=== PATIENT | male | born 1950 | race Caucasian/White ===

== ENCOUNTER 2016-07-17 19:34 | Emergency (ER) | payer OTHER, MEDICARE ==
[~2016-07-17] VITALS: Ht 188 cm; Wt 104.5 kg
[2016-07-17 19:46] VITALS: BP 140/99; PULSE 101; RESP 16; TEMP 97.9; O2SAT 97
[2016-07-17] MEDS ORDERED: VIAG50TA PO (20:17)
--- NOTE | 2016-07-17 20:28 | PD ---
HPI Chief Complaint: Complaint Time Seen by Provider: 20:16 Travel History International Travel<30 days: No Contact w/Intl Traveler<30days: No Traveled to known affect area: No History of Present Illness HPI The patient is a 66-year-old male that complains of chills, suprapubic pain and left flank pain since 5:30 this afternoon. The patient had prostate surgery on June 04 for prostate cancer, all of his prostate was removed. The patient has nausea and vomiting and chills but denies any fever. He had had an indwelling catheter prior to the surgery. He has had a nonproductive cough. PFSH Past Medical History Cancer: Yes (prostate) Tetanus Vaccination: > 5 Years Influenza Vaccination: No Past Surgical History Abdominal Surgery: Yes (bilateral inguinal hernia repair) Other Surgery: Yes (biceps rupture repair/ colon removed) Social History Alcohol Use: No Tobacco Use: No (quit 45 years ago) Substance Use: No Allergies-Medications (Allergen,Severity, Reaction): Coded Allergies: Sulfa (Verified Allergy, Unknown, 07/17/16) Uncoded Allergies: NKA (Allergy, Unknown, 11/02/02) Reported Meds & Prescriptions Reported Meds & Active Scripts Active Ciprofloxacin (Ciprofloxacin HCl) 500 Mg Tab 500 Mg PO BID 10 Days Reported Viagra (Sildenafil Citrate) 50 Mg Tab 50 Mg PO DAILY PRN Review of Systems Except as stated in HPI: all other systems reviewed are Neg Physical Exam Narrative GENERAL: The patient is alert, oriented 3 in moderate apparent distress with his abdominal and left flank pain. His vital signs show blood pressure 140/99 with a heart rate of 101 but are otherwise normal. SKIN: Focused skin assessment warm/dry. HEAD: Atraumatic. Normocephalic. EYES: Pupils equal and round. No scleral icterus. No injection or drainage. ENT: No nasal bleeding or discharge. Mucous membranes pink and moist. NECK: Trachea midline. No JVD. CARDIOVASCULAR: Regular rate and rhythm. No murmur appreciated. RESPIRATORY: No accessory muscle use. Clear to auscultation. Breath sounds equal bilaterally. GASTROINTESTINAL: Abdomen soft, with tenderness to direct palpation over the left flank and suprapubic regions bilaterally, nondistended. Hepatic and splenic margins not palpable. No guarding or rebound is present. MUSCULOSKELETAL: No obvious deformities. No clubbing. No cyanosis. No edema. NEUROLOGICAL: Awake and alert. No obvious cranial nerve deficits. Motor grossly within normal limits. Normal speech. PSYCHIATRIC: Appropriate mood and affect; insight and judgment normal. Data Data Last Documented VS Vital Signs Date Time Temp Pulse Resp B/P Pulse Ox O2 Delivery O2 Flow Rate FiO2 07/17/16 19:46 97.9 101 16 140/99 97 Orders Complete Blood Count With Diff (07/17/16 20:28) Comprehensive Metabolic Panel (07/17/16 20:28) Urinalysis - C+S If Indicated (07/17/16 20:28) Chest, Pa & Lat (07/17/16 20:28) Urine Culture (07/17/16 20:35) Ondansetron Inj (Zofran Inj) (07/17/16 21:00) Ceftriaxone Inj (Rocephin Inj) (07/17/16 21:45) Labs Laboratory Tests Test 07/17/16 07/17/16 20:35 20:40 Urine Color STRAW Urine Turbidity CLOUDY Urine pH 6.0 Urine Specific [place] 1.014 Urine Protein 100 mg/dL Urine Glucose (UA) NEG mg/dL Urine Ketones 40 mg/dL Urine Occult Blood MOD Urine Nitrite NEG Urine Bilirubin NEG Urine Leukocyte Esterase MOD Urine RBC 10-14 /hpf Urine WBC INNUM /hpf Urine Squamous Epithelial 0-5 /hpf Cells Urine Bacteria MANY /hpf Microscopic Urinalysis Comment CULTURE INDICATED White Blood Count 10.7 TH/MM3 Red Blood Count 5.16 MIL/MM3 Hemoglobin 14.2 GM/DL Hematocrit 42.5 % Mean Corpuscular Volume 82.4 FL Mean Corpuscular Hemoglobin 27.6 PG Mean Corpuscular Hemoglobin 33.5 % Concent Red Cell Distribution Width 13.1 % Platelet Count 266 TH/MM3 Mean Platelet Volume 8.8 FL Neutrophils (%) (Auto) 82.2 % Lymphocytes (%) (Auto) 8.0 % Monocytes (%) (Auto) 7.4 % Eosinophils (%) (Auto) 0.6 % Basophils (%) (Auto) 1.8 % Neutrophils # (Auto) 8.7 TH/MM3 Lymphocytes # (Auto) 0.9 TH/MM3 Monocytes # (Auto) 0.8 TH/MM3 Eosinophils # (Auto) 0.1 TH/MM3 Basophils # (Auto) 0.2 TH/MM3 CBC Comment DIFF FINAL Differential Comment Sodium Level 139 MEQ/L Potassium Level 3.6 MEQ/L Chloride Level 100 MEQ/L Carbon Dioxide Level 28.6 MEQ/L Anion Gap 10 MEQ/L Blood Urea Nitrogen 17 MG/DL Creatinine 1.40 MG/DL Estimat Glomerular Filtration 50 ML/MIN Rate Random Glucose 121 MG/DL Calcium Level 8.8 MG/DL Total Bilirubin 1.1 MG/DL Aspartate Amino Transf 17 U/L (AST/SGOT) Alanine Aminotransferase 22 U/L (ALT/SGPT) Alkaline Phosphatase 78 U/L Total Protein 7.9 GM/DL Albumin 3.4 GM/DL [facility] Medical Decision Making Medical Screen Exam Complete: Yes Emergency Medical Condition: Yes Medical Record Reviewed: Yes Interpretation(s) The complete metabolic profile shows creatinine 1.4, GFR 50 and total bilirubin 1.1 but is otherwise unremarkable. The urine shows cloudy turbidity, 100 protein, 40 ketones, moderate occult blood with moderate leukocyte esterase and innumerable white cells and 10-14 red cells and many bacteria and culture is indicated. The chest x-ray shows an elevated right hemidiaphragm but is otherwise unremarkable. The CBC is normal. Differential Diagnosis Pyelonephritis, cystitis, postsurgical pain, pneumonia Narrative Course The patient has pyelonephritis as well as a cystitis. Plan: The patient will be given Rocephin IV here and a prescription for Macrobid. He needs to increase his liquid intake. Diagnosis Primary Impression: Pyelonephritis Additional Impression: Cystitis Additional Instructions: Continue to increase liquid intake to establish a good urine flow through your kidneys. Follow-up with her primary care physician next week. The antibiotic is one tablet twice daily for 10 days. Med/Other Pt SpecificInfo: Prescription(s) given Scripts Ciprofloxacin 500 Mg [id number] Mg PO BID 10 Days Ref 0 Prov:Ravinder Hart MD 07/17/16 Disposition: 01 DISCHARGE HOME Condition: Stable Ravinder Hart MD July 17, 2016 20:28
[2016-07-17 20:38] LABS: GLUCOSE,URINE NEG (NEG); KETONE, URINE 40 mg/dL (NEG); NITRITE,URINE NEG (NEG)
[2016-07-17 20:43] LABS: BLOOD, URINE MOD (NEG)
[2016-07-17 20:44] LABS: URINE COLOR STRAW (YELLW/STRAW); WBC, URINE INNUM /hpf (0-5)
[2016-07-17 20:45] LABS: BACTERIA, URINE MANY /hpf; SQUAMOUS EPITHELIAL CELL URINE 0-5 /hpf (0-5)
[2016-07-17 20:46] LABS: COMMENT (UR) CULTURE INDICATED; CULTURE IF INDICATED CULTURE INDICATED
[2016-07-17 20:47] LABS: AUTOMATED NEUTROPHIL # 8.7 TH/MM3 (1.8-7.7); BASOPHIL # 0.2 TH/MM3 (0-0.2); BASOPHIL % 1.8 % (0.0-2.0); EOSINOPHIL # 0.1 TH/MM3 (0-0.4); EOSINOPHIL % 0.6 % (0.0-4.0); HEMATOCRIT 42.5 % (39.0-51.0); LYMPHOCYTE # 0.9 TH/MM3 (1.0-4.8); MEAN CELL VOLUME 82.4 FL (80.0-100.0); MEAN CORPUSCULAR HEMOGLOBIN 27.6 PG (27.0-34.0); MEAN CORPUSCULAR HGB CONC 33.5 % (32.0-36.0); MONO % 7.4 % (0.0-8.0); NEUT % 82.2 % (16.0-70.0); PLATELET COUNT 266 TH/MM3 (150-450); RED BLOOD COUNT 5.16 MIL/MM3 (4.50-5.90); RED CELL DISTRIBUTION WIDTH 13.1 % (11.6-17.2); WHITE BLOOD COUNT 10.7 TH/MM3 (4.0-11.0)
[2016-07-17 20:49] LABS: HEMO FLAGS DIFF FINAL
[2016-07-17 21:00] VITALS: BP 142/88; PULSE 74; RESP 18; O2SAT 99
[2016-07-17] MEDS ORDERED: ONDANSETRON HCL 4 MG/2 ML VIAL IV ONE (21:00)
--- NOTE | 2016-07-17 21:03 | RADHPO ---
EXAM DATE/TIME: 07/17/2016 20:40 [facility] COMPARISON: No previous studies available for comparison. INDICATIONS : Chest discomfort, right lower quadrant pain. MEDICAL HISTORY : None. SURGICAL HISTORY : None. ENCOUNTER: Initial ACUITY: 1 day PAIN SCORE: 0/10 LOCATION: Bilateral chest FINDINGS: Left lung is clear. Right hemidiaphragm is elevated with no consolidation or effusion. Osseous struct ures are intact. There is no free air beneath the diaphragm. Air is seen within nondilated large blanche l. CONCLUSION: Elevated right hemidiaphragm. Paul Denise MD on July 17, 2016 at 21:00 Board Certified Radiologist. This report was verified electronically.
[2016-07-17 21:35] LABS: CHLORIDE 100 MEQ/L (98-107); POTASSIUM 3.6 MEQ/L (3.5-5.1); SODIUM (NA) 139 MEQ/L (136-145)
[2016-07-17 21:39] LABS: ANION GAP 10 MEQ/L (5-15); BICARBONATE 28.6 MEQ/L (21.0-32.0); BLOOD UREA NITROGEN 17 MG/DL (7-18)
[2016-07-17 21:42] LABS: ALT (GPT) 22 U/L (12-78); AST (GOT) 17 U/L (15-37); GLOMERULAR FILTRATION RATE 50 ML/MIN (>89)
[2016-07-17 21:43] LABS: TOTAL BILIRUBIN ADULT 1.1 MG/DL (0.2-1.0)
[2016-07-17 21:45] LABS: ALKALINE PHOSPHATASE 78 U/L (45-117)
[2016-07-17] MEDS ORDERED: cefTRIAXone INJ 2,000 MG in SODIUM CHLORIDE 0.9% INJ 100 ML IV ONE (21:45)
[2016-07-17] MEDS ORDERED: CIPR500T2 PO (21:53)
[2016-07-18] MEDS ORDERED: SODIUM CHLOR 0.9% 1000 ML INJ 1,000 ML IV SCH (01:34)
[2016-07-18] MEDS ORDERED: ONDANSETRON HCL 4 MG/2 ML VIAL IVP PRN (01:45)
[2016-07-18] MEDS ORDERED: NALOXONE HCL 0.4 MG/ML AMP IV PRN (01:45)
[2016-07-18] MEDS ORDERED: SODIUM CHLORIDE 0.9% FLUSH 10 ML FLUSH IV FLUSH PRN (01:45)
[2016-07-18] MEDS ORDERED: SODIUM CHLORIDE 0.9% FLUSH 10 ML FLUSH IV FLUSH SCH (09:00)
[2016-07-18] MEDS ORDERED: cefTRIAXone INJ 1,000 MG in SODIUM CHLORIDE 0.9% INJ 100 ML IV SCH (09:00)
== END 2016-07-17 22:57 | disposition home or self-care (01) ==
LOC: PHEFT 19:34
DX: N12 Tubulo-interstitial nephritis, not specified as acute or chronic (principal); N30.90 Cystitis, unspecified without hematuria; R07.89 Other chest pain; B96.1 Klebsiella pneumoniae [K. pneumoniae] as the cause of diseases classified elsewhere
CPT/HCPCS: 71020; 80053; 81001; 85025; 87077; 87086; 87186; 96365; 96375; 99284; J0696; J2405

== ENCOUNTER 2016-07-18 00:58 | Observation (INO) | payer OTHER, MEDICARE ==
[~2016-07-18] VITALS: Ht 188 cm; Wt 104.1 kg
[2016-07-18] VITALS (10 sets, daily range): BP systolic 104–149; BP diastolic 60–88; PULSE 78–110; RESP 16–20; TEMP 96.5–98.9; O2SAT 93–98
[~2016-07-18 00:58] MED LIST: CIPR500T2 PO; VIAG50TA PO
--- NOTE | 2016-07-18 01:42 | PD ---
HPI Chief Complaint: Flank/Kidney Pain Time Seen by Provider: 01:23 Travel History International Travel<30 days: No Contact w/Intl Traveler<30days: No Traveled to known affect area: No History of Present Illness HPI The patient is a 66-year-old male who was just released a few hours ago for this emergency department on antibiotics. He had pyelonephritis and was put on Rocephin and Cipro. He comes in again because he has developed low back pain. The pain is bilateral and about 3 cm away from midline. He denies any radiation of pain or trauma. He has been vomiting. [facility] Past Medical History Cancer: Yes (prostate) Past Surgical History Abdominal Surgery: Yes (bilateral inguinal hernia repair) Genitourinary Surgery: Yes (May, PROSTATE REMOVED) Other Surgery: Yes (biceps rupture repair/ colon removed) Social History Alcohol Use: No Tobacco Use: No (quit 45 years ago) Substance Use: No Allergies-Medications (Allergen,Severity, Reaction): Coded Allergies: Sulfa (Verified Allergy, Unknown, 07/18/16) Uncoded Allergies: NKA (Allergy, Unknown, 11/02/02) Reported Meds & Prescriptions Reported Meds & Active Scripts Active Ciprofloxacin (Ciprofloxacin HCl) 500 Mg Tab 500 Mg PO BID 10 Days Reported Viagra (Sildenafil Citrate) 50 Mg Tab 50 Mg PO DAILY PRN Review of Systems Except as stated in HPI: all other systems reviewed are Neg Physical Exam Narrative GENERAL: The patient is alert, oriented 3 in moderate apparent distress with his low back pain. His vital signs show pulse of 103 and blood pressure 149/84. SKIN: Focused skin assessment warm/dry. HEAD: Atraumatic. Normocephalic. EYES: Pupils equal and round. No scleral icterus. No injection or drainage. ENT: No nasal bleeding or discharge. Mucous membranes pink and moist. NECK: Trachea midline. No JVD. CARDIOVASCULAR: Regular rate and rhythm. No murmur appreciated. RESPIRATORY: No accessory muscle use. Clear to auscultation. Breath sounds equal bilaterally. GASTROINTESTINAL: Abdomen soft, non-tender, nondistended. Hepatic and splenic margins not palpable. MUSCULOSKELETAL: No obvious deformities. No clubbing. No cyanosis. No edema. The patient has reproducible tenderness around L5-S1 area about 3 cm to the left and to the right of midline of the lumbar spine. NEUROLOGICAL: Awake and alert. No obvious cranial nerve deficits. Motor grossly within normal limits. Normal speech. PSYCHIATRIC: Appropriate mood and affect; insight and judgment normal. Data Data Last Documented VS Vital Signs Date Time Temp Pulse Resp B/P Pulse Ox O2 Delivery O2 Flow Rate FiO2 07/18/16 01:05 97.9 103 20 149/84 98 Orders Ketorolac Inj (Toradol Inj) (07/18/16 01:45) Ondansetron Inj (Zofran Inj) (07/18/16 01:45) Morphine Inj (Morphine Inj) (07/18/16 01:45) Ct Lumb Spine W/O Contrast (07/18/16 01:36) MDM Medical Decision Making Medical Screen Exam Complete: Yes Emergency Medical Condition: Yes Medical Record Reviewed: Yes Differential Diagnosis Intractable back pain, compression fracture of spine, pyelonephritis, intractable vomiting Narrative Course The patient has intractable back pain. He has been vomiting, this is likely because of the pyelonephritis. Plan: The patient will be admitted for IV pain medication/antibiotics. Diagnosis Primary Impression: Intractable low back pain Additional Impression: Pyelonephritis Admitting Information Admitting Physician Requests: Observation Ravinder Hart MD July 18, 2016 01:42
[2016-07-18] MEDS ORDERED: MORPHINE SULFATE 4 MG/ML INJ IV PUSH ONE (01:45)
[2016-07-18] MEDS ORDERED: ONDANSETRON HCL 4 MG/2 ML VIAL IV ONE ×2 (01:45→04:00)
[2016-07-18] MEDS ORDERED: KETOROLAC TROMETHAMINE 60 MG/2 ML (IM) VIAL IVP ONE (01:45)
--- NOTE | 2016-07-18 02:31 | RADHPO ---
EXAM DATE/TIME: 07/18/2016 01:59 [facility] COMPARISON: No previous studies available for comparison. INDICATIONS : Lower back pain. RADIATION DOSE: 40.10 CTDIvol (mGy) MEDICAL HISTORY : None SURGICAL HISTORY : None. ENCOUNTER: Initial ACUITY: 1 day PAIN SCALE: 8/10 LOCATION: [facility] TECHNIQUE: Volumetric scanning of the lumbar spine was performed. Multiplanar reconstructions in the sagittal, coronal and oblique axial planes were performed. Using automated exposure control and adjustment of the mA and/or kV according to patient size, radiation dose was kept as low as reasonably achievable t o obtain optimal diagnostic quality images. FINDINGS: VERTEBRAE: Normal vertebral body height. ALIGNMENT: No evidence of subluxation. T12-L1: The thecal sac has a normal diameter. No evidence of disc bulge or protrusion. The neural foramina are patent bilaterally. L1-L2: Mild diffuse annular bulge with some thecal sac flattening. No evidence of disc protrusion. The neur al foramina are patent bilaterally. L2-L3: Mild diffuse annular bulge with some thecal sac flattening. No evidence of disc protrusion. The neur al foramina are patent bilaterally. L3-L4: Mild diffuse annular bulge with some thecal sac flattening. No evidence of disc protrusion. The jace ral foramina are patent bilaterally. L4-L5: Mild diffuse annular bulge with some thecal sac flattening. No evidence of disc protrusion. The neur al foramina are patent bilaterally. L5-S1: Mild diffuse annular bulge with some thecal sac flattening. No evidence of disc protrusion. The neur al foramina are patent bilaterally. CONCLUSION: Diffuse annular bulges at multiple levels. No evidence of an acute fracture Cuauhtemoc Eduardo MD on July 18, 2016 at 2:28 Board Certified Radiologist. This report was verified electronically.
[2016-07-18] MEDS ORDERED: ONDANSETRON HCL 4 MG/2 ML VIAL IV PUSH PRN (07:45)
[2016-07-18] MEDS ORDERED: ACETAMINOPHEN 325 MG TAB PO PRN (07:45)
[2016-07-18] MEDS ORDERED: SODIUM CHLOR 0.9% 1000 ML INJ 1,000 ML IV ONE (07:45)
[2016-07-18] MEDS ORDERED: HYDROmorphone HCL PF 1 MG/ML VIAL IV PUSH PRN (07:45)
[2016-07-18] MEDS ORDERED: ACETAMINOPHEN/HYDROcodone 325 MG/5 MG TAB PO PRN ×2 (07:45)
--- NOTE | 2016-07-18 07:53 | HHI.HP ---
[facility] Rahul Tavarez MD Admission Diagnosis intractable back pain, pyelonephritis Diagnoses: (1) Intractable low back pain Diagnosis: Principal (2) UTI (urinary tract infection) Diagnosis: Principal Chief Complaint: low back pain Travel History International Travel<30 Days: No Contact w/Intl Traveler <30 Da: No Traveled to Known Affected Are: No History of Present Illness patient is a 66 y/o male with history of prostate cancer who presented to ER with low back pain. this is his second presentation to ER. he says that his pain started two days ago. pain is in lower back. pain was severe in the beginning although the pain is mild at the moment. he had some dysuria along with the pain. he had some chills but with no fever. he had some nausea and emesis earlier. he denies any weakness or numbness of the legs.he came to ER and was prescribed cipro and discharged home. he says that the pain got worse and he decided to come back to ER. Review of Systems Constitutional: COMPLAINS OF: Chills, DENIES: Fever, Weight loss, Night Sweats Eyes: DENIES: Blurred vision, Diplopia, Vision loss, Double Vision Ears, nose, mouth, throat: DENIES: Tinnitus, Vertigo, Throat pain, Epistaxis Respiratory: DENIES: Apneas, Cough, Snoring, Wheezing, Hemoptysis, Sputum production, Shortness of breath Cardiovascular: DENIES: Chest pain, Palpitations, Syncope, Dyspnea on Exertion , PND, Lower Extremity Edema, Orthopnea, Claudication Gastrointestinal: COMPLAINS OF: Nausea, Vomiting, DENIES: Abdominal pain, Black stools, Bloody stools, Constipation, Diarrhea, Difficulty Swallowing, Anorexia Genitourinary: COMPLAINS OF: Dysuria, DENIES: Urinary frequency, Urgency, Hematuria Musculoskeletal: COMPLAINS OF: Back pain, DENIES: Joint pain, Muscle aches, Stiffness, Joint Swelling Integumentary: DENIES: Rash Neurologic: DENIES: Abnormal gait, Headache, Localized weakness, Paresthesias, Seizures, Speech Problems, Tremor, Poor Balance Psychiatric: DENIES: Anxiety, Confusion, Mood changes, Depression, Hallucinations, Agitation, Suicidal Ideation, Homicidal Ideation, Delusions Past Family Social History Past Medical History prostate cancer Past Surgical History prostatectomy hernia repair Reported Medications sildenafil cipro Allergies: Coded Allergies: Sulfa (Verified Allergy, Unknown, 07/18/16) Uncoded Allergies: NKA (Allergy, Unknown, 11/02/02) Active Ordered Medications Current Medications Ketorolac Tromethamine (Toradol Inj) 30 mg ONCE ONCE IVP Last administered on 07/18/16 01:45; Start 07/18/16 at 01:45; Stop 07/18/16 at 01:46; Status DC Ondansetron HCl (Zofran Inj) 4 mg ONCE ONCE IV Last administered on 07/18/16 01:43; Start 07/18/16 at 01:45; Stop 07/18/16 at 01:46; Status DC Morphine Sulfate (Morphine Inj) 4 mg ONCE ONCE IV PUSH Last administered on 01:48; Start 07/18/16 at 01:45; Stop 07/18/16 at 01:46; Status DC Ondansetron HCl (Zofran Inj) 4 mg ONCE ONCE IV Last administered on 07/18/16 04:08; Start 07/18/16 at 04:00; Stop 07/18/16 at 04:01; Status DC Family History not relevant to this presentation. Social History no smoking or drinking. Physical Exam Vital Signs Vital Signs Date Time Temp Pulse Resp B/P Pulse Ox O2 Delivery O2 Flow Rate FiO2 07/18/16 04:20 98.4 84 18 121/60 96 07/18/16 03:44 98.8 93 18 104/69 97 Room Air 07/18/16 02:19 108 18 122/72 93 Room Air 07/18/16 01:49 110 94 07/18/16 01:05 97.9 103 20 149/84 98 Physical Exam GENERAL: This is a well-nourished, well-developed patient, in no apparent distress. SKIN: No rashes, ecchymoses or lesions. Cool and dry. HEAD: Atraumatic. Normocephalic. No temporal or scalp tenderness. EYES: Pupils equal round and reactive. Extraocular motions intact. No scleral icterus. No injection or drainage. ENT: Nose without bleeding, purulent drainage or septal hematoma. Throat without erythema, tonsillar hypertrophy or exudate. Uvula midline. Airway patent. NECK: Trachea midline. No JVD or lymphadenopathy. Supple, nontender, no meningeal signs. CARDIOVASCULAR: Regular rate and rhythm without murmurs, gallops, or rubs. RESPIRATORY: Clear to auscultation. Breath sounds equal bilaterally. No wheezes , rales, or rhonchi. GASTROINTESTINAL: Abdomen soft, non-tender, nondistended. No hepato-splenomegaly , or palpable masses. No guarding. MUSCULOSKELETAL: Extremities without clubbing, cyanosis, or edema. No joint tenderness, effusion, or edema noted. No calf tenderness. Negative Homans sign bilaterally. lower back mild tenderness. NEUROLOGICAL: Awake and alert. Cranial nerves II through XII intact. Motor and sensory grossly within normal limits. Five out of 5 muscle strength in all muscle groups. Normal speech. Imaging Last Impressions Lumbar Spine CT 07/18/16 0136 Signed Impressions: Service Date/Time: June 01:59 - CONCLUSION: Diffuse annular bulges at multiple levels. No evidence of an acute fracture Cuauhtemoc Eduardo MD Assessment and Plan Assessment and Plan A/P - UTI; start IV Rocephin- follow the UC -low back pain- CT lumbar spine with no acute fracture- continue with pain control- will consult PT -DVT prophylaxis with SCD's Discussed Condition With the patient. Problem Qualifiers (1) UTI (urinary tract infection): Eduardo Larson MD July 18, 2016 07:53
[2016-07-18] MEDS: cefTRIAXone INJ 1,000 MG in SODIUM CHLORIDE 0.9% INJ 100 ML IV SCH (09:34)
[2016-07-18 10:02] LABS: AUTOMATED NEUTROPHIL # 7.4 TH/MM3 (1.8-7.7); BASOPHIL # 0.1 TH/MM3 (0-0.2); BASOPHIL % 0.8 % (0.0-2.0); EOSINOPHIL % 0.3 % (0.0-4.0); HEMATOCRIT 37.4 % (39.0-51.0); HEMO FLAGS DIFF FINAL; LYMPH % 8.4 % (9.0-44.0); LYMPHOCYTE # 0.8 TH/MM3 (1.0-4.8); MEAN CORPUSCULAR HEMOGLOBIN 27.4 PG (27.0-34.0); MEAN CORPUSCULAR HGB CONC 33.4 % (32.0-36.0); MONO % 8.7 % (0.0-8.0); NEUT % 81.8 % (16.0-70.0); PLATELET COUNT 196 TH/MM3 (150-450); RED BLOOD COUNT 4.55 MIL/MM3 (4.50-5.90); RED CELL DISTRIBUTION WIDTH 12.9 % (11.6-17.2); WHITE BLOOD COUNT 9.1 TH/MM3 (4.0-11.0)
[2016-07-18 10:11] LABS: POTASSIUM 3.7 MEQ/L (3.5-5.1)
[2016-07-18 10:14] LABS: BICARBONATE 28.4 MEQ/L (21.0-32.0)
[2016-07-19 08:00] VITALS: BP 143/90; PULSE 99; RESP 20; TEMP 96.8; O2SAT 94
[2016-07-19] MEDS: cefTRIAXone INJ 1,000 MG in SODIUM CHLORIDE 0.9% INJ 100 ML IV SCH (08:33)
--- NOTE | 2016-07-19 11:15 | HHI.PR ---
Subjective Remarks resting comfortably with no distress. pain has almost resolved. no further dysuria. no fever. Objective Vitals Vital Signs Date Time Temp Pulse Resp B/P Pulse Ox O2 Delivery O2 Flow Rate FiO2 07/19/16 08:00 96.8 99 20 143/90 94 07/18/16 23:00 98.9 107 16 146/88 96 07/18/16 19:00 98.8 86 18 133/83 96 07/18/16 16:00 98.7 86 20 105/77 95 07/18/16 12:00 96.5 91 20 135/84 96 I/O 07/18/16 07/18/16 07/18/16 07/19/16 07/19/16 07/19/16 07:00 15:00 23:00 07:00 15:00 23:00 Intake Total 900 ml 1500 ml 300 ml 100 ml Balance 900 ml 1500 ml 300 ml 100 ml Intake Oral 900 ml 500 ml 300 ml IV Total 1000 ml 100 ml # Voids 3 2 2 Result Diagram: 07/18/16 0937 07/18/16 0937 Imaging Last Impressions Lumbar Spine CT 07/18/16 0136 Signed Impressions: Service Date/Time: June 01:59 - CONCLUSION: Diffuse annular bulges at multiple levels. No evidence of an acute fracture Cuauhtemoc Eduardo MD Objective Remarks GENERAL: This is a well-nourished, well-developed patient, in no apparent distress. CARDIOVASCULAR: Regular rate and regular rhythm without murmurs, gallops, or rubs. RESPIRATORY: Clear to auscultation. Breath sounds equal bilaterally. No wheezes , rales, or rhonchi. GASTROINTESTINAL: Abdomen soft, non-tender, nondistended. Normal, active bowel sounds MUSCULOSKELETAL: Extremities without clubbing, cyanosis, or edema. NEURO: Alert & Oriented x4 to person, place, time, situation. Moves all ext x4 Procedures none Medications and IVs Current Medications Ketorolac Tromethamine (Toradol Inj) 30 mg ONCE ONCE IVP Last administered on 07/18/16 01:45; Start 07/18/16 at 01:45; Stop 07/18/16 at 01:46; Status DC Ondansetron HCl (Zofran Inj) 4 mg ONCE ONCE IV Last administered on 07/18/16 01:43; Start 07/18/16 at 01:45; Stop 07/18/16 at 01:46; Status DC Morphine Sulfate (Morphine Inj) 4 mg ONCE ONCE IV PUSH Last administered on 01:48; Start 07/18/16 at 01:45; Stop 07/18/16 at 01:46; Status DC Ondansetron HCl (Zofran Inj) 4 mg ONCE ONCE IV Last administered on 07/18/16 04:08; Start 07/18/16 at 04:00; Stop 07/18/16 at 04:01; Status DC Ondansetron HCl 4 mg 4 mg Q8HR PRN IV PUSH NAUSEA; Start 07/18/16 at 07:45 Ceftriaxone Sodium/Sodium Chloride (Rocephin Inj/NS Inj) 100 ml @ 200 mls/hr Q24H IV Last administered on 07/19/16 08:33; Start 07/18/16 at 09:00 Acetaminophen/ Hydrocodone Bitart ([place] 5-325 Mg) 1 tab Q4H PRN PO PAIN <5; Start 07/18/16 at 07:45 Acetaminophen/ Hydrocodone Bitart ([place] 5-325 Mg) 2 tab Q4H PRN PO PAIN >5 Last administered on 07/19/16 00:10; Start 07/18/16 at 07:45 Hydromorphone HCl 0.5 mg 0.5 mg Q4H PRN IV PUSH BREAKTHROUGH PAIN; Start at 07:45 Sodium Chloride (NS 1000 ml Inj) 1,000 ml @ 100 mls/hr Q10H ONCE IV Last administered on 07/18/16 09:34; Start 07/18/16 at 07:45; Stop 07/18/16 at 17:44 ; Status DC Acetaminophen (Tylenol) 650 mg Q4H PRN PO FEVER; Start 07/18/16 at 07:45 A/P Assessment and Plan A/P - UTI; with klebsiella- continue cipro upon discharge. -low back pain- has much improved.CT lumbar spine with no acute fracture- continue with pain control- -DVT prophylaxis with SCD's Discharge Planning dc home today with f/u by pcp. see med list. d/w the patient. Eduardo Larson MD July 19, 2016 11:15
--- NOTE | 2016-07-19 11:16 | HHI.DCPOC ---
Discharge Care Plan Diagnosis: (1) UTI (urinary tract infection) (2) Intractable low back pain Your Health Problems Are: Difficulty with ADL Chronic Pain Goals to Promote Your Health * To prevent worsening of your condition and complications * To maintain your health at the optimal level Directions to Meet Your Goals Take your medications as prescribed Follow your dietary instruction Follow activity as directed Keep your appointments as scheduled Take your immunizations and boosters as scheduled If your symptoms worsen call your PCP, if no PCP go to Urgent Care Center or Emergency Room Smoking is Dangerous to Your Health. Avoid second hand smoke Call the 24-hour hour crisis hotline for domestic abuse at Eduardo Larson MD July 19, 2016 11:16
--- NOTE | 2016-07-19 11:17 | HHI.DS ---
Discharge Summary Admission Date July 18, 2016 at 01:38 Discharge Date: July 19, 2016 Admitting Diagnosis intractable back pain, pyelonephritis (1) Intractable low back pain ICD Code: M54.5 Diagnosis: Principal (2) UTI (urinary tract infection) ICD Code: N39.0 Diagnosis: Principal Procedures none Brief History - From Admission patient is a 66 y/o male with history of prostate cancer who presented to ER with low back pain. this is his second presentation to ER. he says that his pain started two days ago. pain is in lower back. pain was severe in the beginning although the pain is mild at the moment. he had some dysuria along with the pain. he had some chills but with no fever. he had some nausea and emesis earlier. he denies any weakness or numbness of the legs.he came to ER and was prescribed cipro and discharged home. he says that the pain got worse and he decided to come back to ER. CBC/BMP: 07/18/16 0937 07/18/16 0937 Significant Findings Laboratory Tests Test 07/18/16 09:37 Hemoglobin 12.5 GM/DL (13.0-17.0) Hematocrit 37.4 % (39.0-51.0) Neutrophils (%) (Auto) 81.8 % (16.0-70.0) Lymphocytes (%) (Auto) 8.4 % (9.0-44.0) Monocytes (%) (Auto) 8.7 % (0.0-8.0) Lymphocytes # (Auto) 0.8 TH/MM3 (1.0-4.8) Blood Urea Nitrogen 20 MG/DL (7-18) Estimat Glomerular Filtration 67 ML/MIN (>89) Rate Random Glucose 117 MG/DL (74-106) Calcium Level 8.1 MG/DL (8.5-10.1) Imaging Last Impressions Lumbar Spine CT 07/18/16 0136 Signed Impressions: Service Date/Time: June 01:59 - CONCLUSION: Diffuse annular bulges at multiple levels. No evidence of an acute fracture Cuauhtemoc Eduardo MD PE at Discharge GENERAL: This is a well-nourished, well-developed patient, in no apparent distress. CARDIOVASCULAR: Regular rate and regular rhythm without murmurs, gallops, or rubs. RESPIRATORY: Clear to auscultation. Breath sounds equal bilaterally. No wheezes , rales, or rhonchi. GASTROINTESTINAL: Abdomen soft, non-tender, nondistended. Normal, active bowel sounds MUSCULOSKELETAL: Extremities without clubbing, cyanosis, or edema. NEURO: Alert & Oriented x4 to person, place, time, situation. Moves all ext x4 Hospital Course - UTI; with klebsiella- continue cipro upon discharge. -low back pain- has much improved.CT lumbar spine with no acute fracture- continue with pain control- -DVT prophylaxis with SCD's Pt Condition on Discharge: Good Discharge Disposition: Discharge Home Discharge Time: <= 30 minutes Discharge Instructions DIET: Follow Instructions for: Heart Healthy Diet Activities you can perform: Regular-No Restrictions Follow up Referrals: PCP Follow-up Continued Medications: Ciprofloxacin (Ciprofloxacin) 500 Mg Tab 500 MG PO BID Infection Days 10 Ref 0 TAB Sildenafil (Viagra) 50 Mg Tab 50 MG PO DAILY PRN ERECTILE DYSFUNCTION Ref 0 TAB Eduardo Larson MD July 19, 2016 11:16
[2016-07-19 11:54] VITALS: BP 133/92; PULSE 93; RESP 20; TEMP 98.9; O2SAT 96
== END 2016-07-19 12:09 | disposition home or self-care (01) ==
LOC: PHED 00:58 → PHEDA 01:38 → PH3B 04:19
PROVIDERS: ADMIT Internal Medicine; ATTEND Internal Medicine
DX: N12 Tubulo-interstitial nephritis, not specified as acute or chronic (principal); N39.0 Urinary tract infection, site not specified; B96.1 Klebsiella pneumoniae [K. pneumoniae] as the cause of diseases classified elsewhere; R11.2 Nausea with vomiting, unspecified; M54.5 Low back pain; Z85.46 Personal history of malignant neoplasm of prostate
CPT/HCPCS: 72131; 80048; 85025; 97162; 99285; G0378; G8987; G8988; J0696; J1885; J2270; J2405; J7030

== ENCOUNTER 2017-07-09 14:25 | Emergency (ER) | payer OTHER, MEDICARE ==
[~2017-07-09] VITALS: Ht 188 cm; Wt 120.0 kg
[2017-07-09 14:30] VITALS: BP 169/100; PULSE 134; RESP 32; TEMP 98.5; O2SAT 99
[2017-07-09] MEDS ORDERED: [UNRECOGNIZED DRUG - OTHER] (14:43)
[2017-07-09] MEDS ORDERED: MOBI15TA PO (14:43)
[2017-07-09] MEDS ORDERED: SODIUM CHLORIDE 0.9% FLUSH 10 ML FLUSH IVF PRN (14:45)
[2017-07-09 15:06] VITALS: O2SAT 100
--- NOTE | 2017-07-09 15:24 | RADRPT ---
EXAM DATE/TIME: 07/09/2017 14:57 [facility] COMPARISON: CHEST PA & LAT, July 17, 2016, 20:40 INDICATIONS : Short of breath. MEDICAL HISTORY : None. SURGICAL HISTORY : None. ENCOUNTER: Initial ACUITY: 1 day PAIN SCORE: 0/10 LOCATION: Bilateral chest FINDINGS: Moderate elevation right hemidiaphragm with minimal parenchymal changes right base Left lung clear Mild compensated cardiomegaly. The portion of the bony skeleton visualized is unremarkable. CONCLUSION: Mild compensated cardiomegaly Elevation right hemidiaphragm with minimal changes right base. Julio Cesar Deleon MD FACR on July 09, 2017 at 15:20 Board Certified Radiologist. This report was verified electronically.
[2017-07-09 15:30] VITALS: BP 122/78; PULSE 106; RESP 22; O2SAT 100
[2017-07-09 15:37] LABS: AUTOMATED NEUTROPHIL # 6.6 TH/MM3 (1.8-7.7); BASOPHIL # 0.1 TH/MM3 (0-0.2); BASOPHIL % 1.2 % (0.0-2.0); EOSINOPHIL # 0.1 TH/MM3 (0-0.4); HEMATOCRIT 45.5 % (39.0-51.0); HEMOGLOBIN 15.4 GM/DL (13.0-17.0); LYMPHOCYTE # 1.9 TH/MM3 (1.0-4.8); MEAN CELL VOLUME 83.7 FL (80.0-100.0); MEAN CORPUSCULAR HEMOGLOBIN 28.3 PG (27.0-34.0); MEAN CORPUSCULAR HGB CONC 33.9 % (32.0-36.0); MEAN PLATELET VOLUME 9.9 FL (7.0-11.0); MONO % 9.7 % (0.0-8.0); MONOCYTE # 0.9 TH/MM3 (0-0.9); NEUT % 68.1 % (16.0-70.0); PLATELET COUNT 203 TH/MM3 (150-450); RED BLOOD COUNT 5.43 MIL/MM3 (4.50-5.90); RED CELL DISTRIBUTION WIDTH 13.8 % (11.6-17.2); WHITE BLOOD COUNT 9.7 TH/MM3 (4.0-11.0)
[2017-07-09 15:49] LABS: PROTHROMBIN TIME - PATIENT 10.5 SEC (9.8-11.6)
[2017-07-09 15:56] LABS: ALT (GPT) 23 U/L (12-78); AST (GOT) 21 U/L (15-37); BICARBONATE 23.5 MEQ/L (21.0-32.0); BLOOD UREA NITROGEN 17 MG/DL (7-18); CALCIUM 8.9 MG/DL (8.5-10.1); CHLORIDE 106 MEQ/L (98-107); CREATININE 1.22 MG/DL (0.60-1.30); GLOMERULAR FILTRATION RATE 59 ML/MIN (>89); GLUCOSE,RANDOM 99 MG/DL (74-106); SODIUM (NA) 140 MEQ/L (136-145)
[2017-07-09 15:58] LABS: ALKALINE PHOSPHATASE 119 U/L (45-117); TOTAL BILIRUBIN ADULT 0.7 MG/DL (0.2-1.0)
[2017-07-09 16:48] VITALS: BP 123/72; PULSE 85; RESP 18; O2SAT 96
[2017-07-09] MEDS ORDERED: IOHEXOL 350 MG/ML 10 ML VIAL (for RAD DIAG) IVCONTRAST ONE (17:08)
--- NOTE | 2017-07-09 17:13 | RADRPT ---
EXAM DATE/TIME: 07/09/2017 16:37 [facility] COMPARISON: No previous studies available for comparison. INDICATIONS : Shortness of breath IV CONTRAST: 76 cc Omnipaque 350 (iohexol) IV RADIATION DOSE: 23.02 CTDIvol (mGy) MEDICAL HISTORY : Prostate cancer SURGICAL HISTORY : Prostatectomy. ENCOUNTER: Initial ACUITY: 4 - 6 days PAIN SCALE: 2/10 LOCATION: Bilateral chest TECHNIQUE: Volumetric scanning of the chest was performed using a pulmonary embolism protocol MIP images were re constructed. Using automated exposure control and adjustment of the mA and/or kV according to patien t size, radiation dose was kept as low as reasonably achievable to obtain optimal diagnostic quality images. DICOM format image data is available electronically for review and comparison. Follow-up recommendations for detected pulmonary nodules are based at a minimum on nodule size and pa tient risk factors according to Fleischner Society Guidelines. FINDINGS: Marked elevation of the right hemidiaphragm the bowel and stomach content occupying two thirds of the right chest. Compressive atelectasis right base. Left lung clear There is no axillary adenopathy. There is no mediastinal adenopathy. There is no evidence for central pulmonary emboli. Upper abdominal contents are grossly unremarkable CONCLUSION: Ventilation significant compromise on the right with most of abdominal contents filling two thirds of the right chest. Negative for central pulmonary emboli. Julio Cesar Deleon MD FACR on July 09, 2017 at 17:09 Board Certified Radiologist. This report was verified electronically.
--- NOTE | 2017-07-09 17:16 | PD ---
HPI Chief Complaint: Respiratory Symptoms Time Seen by Provider: 14:35 Travel History International Travel<30 days: No Contact w/Intl Traveler<30days: No Traveled to known affect area: No History of Present Illness HPI This is a 67-year-old male who has a history of metastatic prostate cancer who presents to the emergency breath, constant, severe, worsening over the past 5 days with no associated productive cough, fevers or chills. 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 PFSH Past Medical History Cancer: Yes (prostate) Diminished Hearing: No Medical other: Yes Musculoskeletal: Yes (BROKEN ANKLE , MCL ) Immunizations Current: No Tetanus Vaccination: Unknown Influenza Vaccination: No Past Surgical History Abdominal Surgery: Yes (bilateral inguinal hernia repair) Genitourinary Surgery: Yes (May, PROSTATE REMOVED) Other Surgery: Yes ( RIGHT biceps rupture repair) Social History Alcohol Use: No Tobacco Use: No (QUIT) Substance Use: No Allergies-Medications (Allergen,Severity, Reaction): Coded Allergies: Sulfa (Sulfonamide Antibiotics) (Unverified Allergy, Unknown, 07/09/17) Reported Meds & Prescriptions Reported Meds & Active Scripts Active Reported Mobic (Meloxicam) 15 Mg Tab 15 Mg PO DAY PRN Review of Systems Except as stated in HPI: all other systems reviewed are Neg Physical Exam Narrative GENERAL: Anxious appearing. SKIN: Focused skin assessment warm and dry. HEAD: Atraumatic. Normocephalic. EYES: Pupils equal and round. No injection or drainage. ENT: Moist mucous membranes NECK: Trachea midline. CARDIOVASCULAR: Tachycardic. no murmur appreciated. RESPIRATORY: Rales in the right lower lung base, tachypnea GASTROINTESTINAL: Abdomen soft, non-tender, nondistended. MUSCULOSKELETAL: No obvious deformities. NEUROLOGICAL: Awake and alert. No obvious cranial nerve deficits. Moving all extremities. PSYCHIATRIC: Appropriate mood and affect; insight and judgment normal. Data Data Last Documented VS Vital Signs Date Time Temp Pulse Resp B/P (MAP) Pulse Ox O2 Delivery O2 Flow Rate FiO2 07/09/17 18:00 108 23 134/78 (96) 100 Nasal Cannula 3.00 07/09/17 15:10 100 07/09/17 14:30 98.5 Orders Orders Complete Blood Count With Diff (07/09/17 14:35) Comprehensive Metabolic Panel (07/09/17 14:35) Act Partial Throm Time (Ptt) (07/09/17 14:35) Prothrombin Time / Inr (Pt) (07/09/17 14:35) Iv Access Insert/Monitor (07/09/17 14:35) Ecg Monitoring (07/09/17 14:35) Oximetry (07/09/17 14:35) Oxygen Administration (07/09/17 14:35) Chest, Single Ap (07/09/17 14:35) Sodium Chloride 0.9% Flush (Ns Flush) (07/09/17 14:45) Resp Bipap / Cpap Non Invas Vt (07/09/17 14:35) Ct Pulmonary Angiogram (07/09/17 ) Iohexol 350 Inj (Omnipaque 350 Inj) (07/09/17 17:08) Arterial Blood Gas (Abg) (07/09/17 ) Admit Order (Ed Use Only) (07/09/17 ) Electrocardiogram (07/09/17 14:34) Labs Laboratory Tests Test 07/09/17 14:40 White Blood Count 9.7 TH/MM3 Red Blood Count 5.43 MIL/MM3 Hemoglobin 15.4 GM/DL Hematocrit 45.5 % Mean Corpuscular Volume 83.7 FL Mean Corpuscular Hemoglobin 28.3 PG Mean Corpuscular Hemoglobin Concent 33.9 % Red Cell Distribution Width 13.8 % Platelet Count 203 TH/MM3 Mean Platelet Volume 9.9 FL Neutrophils (%) (Auto) 68.1 % Lymphocytes (%) (Auto) 20.0 % Monocytes (%) (Auto) 9.7 % Eosinophils (%) (Auto) 1.0 % Basophils (%) (Auto) 1.2 % Neutrophils # (Auto) 6.6 TH/MM3 Lymphocytes # (Auto) 1.9 TH/MM3 Monocytes # (Auto) 0.9 TH/MM3 Eosinophils # (Auto) 0.1 TH/MM3 Basophils # (Auto) 0.1 TH/MM3 CBC Comment DIFF FINAL Differential Comment Prothrombin Time 10.5 SEC Prothromb Time International Ratio 1.0 RATIO Activated Partial Thromboplast Time 24.2 SEC Blood Urea Nitrogen 17 MG/DL Creatinine 1.22 MG/DL Random Glucose 99 MG/DL Total Protein 8.0 GM/DL Albumin 4.0 GM/DL Calcium Level 8.9 MG/DL Alkaline Phosphatase 119 U/L Aspartate Amino Transf (AST/SGOT) 21 U/L Alanine Aminotransferase (ALT/SGPT) 23 U/L Total Bilirubin 0.7 MG/DL Sodium Level 140 MEQ/L Potassium Level 3.7 MEQ/L Chloride Level 106 MEQ/L Carbon Dioxide Level 23.5 MEQ/L Anion Gap 11 MEQ/L Estimat Glomerular Filtration Rate 59 ML/MIN MDM Medical Decision Making Medical Screen Exam Complete: Yes Emergency Medical Condition: Yes Interpretation(s) no leukocytosis electrolytes are reassuring abg: compensated respiratory alkalosis Last 24 hours Impressions Chest X-Ray 07/09/17 1435 Signed Impressions: Service Date/Time: Sunday, July 09, 2017 14:57 - CONCLUSION: Mild compensated cardiomegaly Elevation right hemidiaphragm with minimal changes right base. Julio Cesar Deleon MD FACR CT Angiography 07/09/17 0000 Signed Impressions: Service Date/Time: Sunday, July 09, 2017 16:37 - CONCLUSION: Ventilation significant compromise on the right with most of abdominal contents filling two thirds of the right chest. Negative for central pulmonary emboli. Julio Cesar Deleon MD FACR Differential Diagnosis pleural effusion, pulmonary embolism, lung cancer, pneumonia Narrative Course This is a 67-year-old male who presents to the emergency department with marked dyspnea. He was placed on a monitor and an IV was established. He was trialed on BiPAP but did not tolerate it due to anxiety. CT of the chest demonstrates markedly elevated diaphragm on the right with no ventilation of the right lung. I am not certain what is causing this but it may be related to the patient's cancer. I recommended that the patient be admitted to the intensive care unit. Patient understands the significant risk of his breathing difficulty. He has a grandson that was admitted to no more is overnight with leukemia and he wants to be there. He understands the risks to his health but he wants to leave AGAINST MEDICAL ADVICE. He is competent to make this decision. Patient was discharged. Critical Care Narrative Aggregate critical care time was 50 minutes. Time to perform other separately billable procedures was not included in the critical care time. My time did not include minutes spent treating any other patients simultaneously or on activities that did not directly contribute to the patient's treatment. The services I provided to this patient were to treat and/or prevent clinically significant deterioration that could result in: Disability, I provided critical care services requiring my management, as noted below: Chart data review, documentation time, medication orders and management, vital sign assessments/reviewing monitor data, ordering and reviewing lab tests, ordering and interpreting/reviewing x-rays and diagnostic studies, care of the patient and discussion of the patient with the admitting physicians. Jessica Schulz MD July 09, 2017 17:16
[2017-07-09 17:30] VITALS: BP 125/82; PULSE 106; RESP 25; O2SAT 100
[2017-07-09 18:00] VITALS: BP 134/78; PULSE 108; RESP 23; O2SAT 100
--- NOTE | 2017-07-11 12:05 | EKG ---
Date Performed: 07/09/2017 Time Performed: 14:34:31 PTAGE: 67 years EKG: SINUS TACHYCARDIA INCOMPLETE RIGHT BUNDLE BRANCH BLOCK LEFT ANTERIOR FASCICULAR BLOCK MINIM AL ST DEPRESSION ABNORMAL ECG INTERPRETATION BASED ON A DEFAULT AGE OF 40 YEARS PREVIOUS TRACING : 04/04/2003 11.07 DOCTOR: Broderick Mejia Interpretating Date/Time 07/11/2017 11:55:45
== END 2017-07-09 19:30 | disposition left against medical advice (07) ==
LOC: NEPC 14:25 → NEDA 18:19 → UNDOADMIN 18:19 → UNDODISIN 19:30 → NEPC 19:30
DX: R06.00 Dyspnea, unspecified (principal); F41.9 Anxiety disorder, unspecified; I44.4 Left anterior fascicular block; I45.10 Unspecified right bundle-branch block; R00.0 Tachycardia, unspecified; Z53.29 Procedure and treatment not carried out because of patient's decision for other reasons; C61 Malignant neoplasm of prostate; Z88.2 Allergy status to sulfonamides; Z79.899 Other long term (current) drug therapy
CPT/HCPCS: 36600; 71045; 71275; 80053; 82805; 85025; 85610; 85730; 93005; 94002; 99291; Q9967